=== PATIENT | male | born 1965 | race Asian ===

== ENCOUNTER 2016-06-04 03:52 | Emergency (ER) | payer OTHER ==
[~2016-06-04] VITALS: Ht 170.2 cm; Wt 90.7 kg
[2016-06-04 03:55] VITALS: BP_SYST 148
--- NOTE | 2016-06-04 03:55 | NUR ---
Placed in H1, Officers at chair-side . Report given to Alfredo RANGEL.
--- NOTE | 2016-06-04 03:57 | NUR ---
Pt accompanied to ED by [facility] for blood drawn, ambulatory, A&Ox4, denies SOB or chestpain, denies N/V/D. Skin intact. Will continue to monitor
--- NOTE | 2016-06-04 04:02 | NUR ---
Written and verbal consent obtained from patient for blood alcohol, name and verified by patient. Disinfected patient's skin with povidone-iodine that did not contain alcohol or other volatile organic compound. Collected the blood from the subject named by venipuncture, in the presence of Officer #[id number]. Used a sterile, dry hypodermic needle and dry vacuum blood collection. The dry vacuum blood collection was supplied by the officer named above. Withdrew a specimen of blood from right antecubital of the subject named above. Inverted the blood tube several times to ensure that the preservative and anticoagulant were thoroughly mixed in the blood specimen. I initialed the blood tube label for identification. The labeled blood tube was handed directly to the Officer named above. The blood tube stopper remained in place while I had possession of the blood tube. The Officer placed tube into envelope and sealed it in my presence. Envelope initialed by myself and Officer named above. Patient tolerated well, bandage applied, and bleeding controlled.
--- NOTE | 2016-06-04 04:09 | NUR ---
Patient in stable condition. ID arm band removed. Patient educated on pain management and to follow up with PMD. Pain Scale 0/10 Opportunity for questions provided and answered. pt accompanied to group home by [facility]
== END 2016-06-04 04:07 ==
LOC: SED 03:52
DX: Z02.83 Encounter for blood-alcohol and blood-drug test (principal)